=== PATIENT | female | born 1995 | race Caucasian/White ===

== ENCOUNTER 2018-05-14 13:04 | Emergency (ER) | payer MEDICAID ==
[~2018-05-14] VITALS: Ht 162.6 cm; Wt 172.3 kg
[2018-05-14 13:36] LABS: BASOPHILS # (AUTO) 0.03 x10^3/uL (0-0.1); BASOPHILS % (AUTO) 0 % (0-1); EOSINOPHILS # (AUTO) 0.11 x10^3/uL (0-0.4); EOSINOPHILS % (AUTO) 1 % (1-7); LYMPHOCYTES % (AUTO) 21 % (22-44); MD NO; MEAN CORPUSCULAR HEMOGLOBIN 27.8 pg (27.0-34.8); MEAN CORPUSCULAR HGB CONC 33.6 g/dL (32.4-35.8); MEAN CORPUSCULAR VOLUME 82.8 fL (80-100); MEAN PLATELET VOLUME 8.9 fL (7.4-10.4); MONOCYTES # (AUTO) 0.47 x10^3/uL (0.2-0.8); MONOCYTES % (AUTO) 5 % (2-9); NEUTROPHILS # (AUTO) 7.73 x10^3/uL (1.8-6.8); NEUTROPHILS % (AUTO) 73 % (42-75); PLATELET COUNT 298 x10^3/uL (130-400); RED CELL DISTRIBUTION WIDTH 13.5 % (9.6-15.2)
[2018-05-14 13:49] LABS: ALANINE AMINOTRANSFERASE 29 U/L (12-78); ALBUMIN 3.4 g/dL (3.4-5.0); ANION GAP 8 mmol/L (5-15); CHLORIDE 106 mmol/L (98-107); CREATININE 0.63 mg/dL (0.55-1.02)
[2018-05-14 13:53] LABS: ALKALINE PHOSPHATASE 108 U/L (45-117); BILIRUBIN,TOTAL 0.2 mg/dL (0.2-1.0); TOTAL PROTEIN 8.6 g/dL (6.4-8.2)
[2018-05-14] MEDS ORDERED: LISINOPRIL 10 MG TABLET PO ONE (15:30)
[2018-05-14] MEDS ORDERED: KETOROLAC 60 MG/2 ML IM ONE (15:30)
[2018-05-14] MEDS ORDERED: LISINOPRIL 10 MG TABLET ONE (15:33)
[2018-05-14] MEDS ORDERED: KETOROLAC 30 MG/1 ML ONE (15:33)
[2018-05-14 16:04] LABS: HCG UR SG 1.005 (1.003-1.030)
[2018-05-14 16:28] VITALS: BP 145/82
== END 2018-05-14 16:31 | disposition home or self-care (01) ==
LOC: ED 16:25
DX: R42 Dizziness and giddiness (principal); H61.20 Impacted cerumen, unspecified ear; I10 Essential (primary) hypertension
CPT/HCPCS: 36415; 80053; 81025; 84702; 85025; 93005; 96372; 99285; J1885

== ENCOUNTER 2018-05-19 08:41 | Emergency (ER) | payer MEDICAID ==
[~2018-05-19] VITALS: Ht 162.6 cm; Wt 168.0 kg
[2018-05-19 09:26] LABS: BASOPHILS # (AUTO) 0.04 x10^3/uL (0-0.1); BASOPHILS % (AUTO) 1 % (0-1); EOSINOPHILS # (AUTO) 0.14 x10^3/uL (0-0.4); EOSINOPHILS % (AUTO) 2 % (1-7); LYMPHOCYTES # (AUTO) 2.84 x10^3/uL (1-3.4); LYMPHOCYTES % (AUTO) 32 % (22-44); MD NO; MEAN CORPUSCULAR HEMOGLOBIN 27.5 pg (27.0-34.8); MEAN CORPUSCULAR HGB CONC 33.6 g/dL (32.4-35.8); MEAN CORPUSCULAR VOLUME 81.9 fL (80-100); MEAN PLATELET VOLUME 8.8 fL (7.4-10.4); MONOCYTES # (AUTO) 0.52 x10^3/uL (0.2-0.8); MONOCYTES % (AUTO) 6 % (2-9); NEUTROPHILS # (AUTO) 5.38 x10^3/uL (1.8-6.8); NEUTROPHILS % (AUTO) 60 % (42-75); PLATELET COUNT 324 x10^3/uL (130-400); RED BLOOD COUNT 5.15 x10^6/uL (3.82-5.3); RED CELL DISTRIBUTION WIDTH 13.6 % (9.6-15.2)
[2018-05-19 09:39] LABS: ALANINE AMINOTRANSFERASE 35 U/L (12-78); ALBUMIN 3.7 g/dL (3.4-5.0); ANION GAP 9 mmol/L (5-15); CALCIUM 8.8 mg/dL (8.5-10.1); CHLORIDE 101 mmol/L (98-107); CREATININE 0.69 mg/dL (0.55-1.02)
[2018-05-19 09:41] LABS: ALKALINE PHOSPHATASE 96 U/L (45-117); BILIRUBIN,TOTAL 0.4 mg/dL (0.2-1.0); TOTAL PROTEIN 8.5 g/dL (6.4-8.2)
[2018-05-19 10:19] LABS: HCG UR SG 1.015 (1.003-1.030); MICROSCOPIC AUTO
[2018-05-19 10:20] LABS: CULTURE INDICATED? YES
[2018-05-19 11:08] LABS: CLOSTRIDIUM DIFFICILE ANTIGEN NEGATIVE; CLOSTRIDIUM DIFFICILE TOXIN NEGATIVE (Negative)
[2018-05-19] MEDS ORDERED: ONDANSETRON ODT 4 MG ONE (11:10)
[2018-05-19] MEDS ORDERED: ONDANSETRON ODT 4 MG PO ONE (11:30)
[2018-05-19 11:58] VITALS: BP 115/58
== END 2018-05-19 11:59 | disposition home or self-care (01) ==
LOC: ED 10:48
DX: T46.4X1A Poisoning by angiotensin-converting-enzyme inhibitors, accidental (unintentional), initial encounter (principal); R05 Cough; K52.1 Toxic gastroenteritis and colitis; Y92.89 Other specified places as the place of occurrence of the external cause; N30.00 Acute cystitis without hematuria
CPT/HCPCS: 36415; 80053; 81001; 81025; 85025; 87086; 87324; 89055; 93005; 99285; Q0162

== ENCOUNTER 2018-05-25 17:12 | Emergency (ER) | payer MEDICAID ==
[~2018-05-25] VITALS: Ht 162.6 cm; Wt 172.3 kg
[2018-05-25 18:48] LABS: ANION GAP 11 mmol/L (5-15); CALCIUM 8.5 mg/dL (8.5-10.1); CHLORIDE 106 mmol/L (98-107); CREATININE 0.61 mg/dL (0.55-1.02)
[2018-05-25 19:40] VITALS: BP 142/87
== END 2018-05-25 19:42 | disposition home or self-care (01) ==
LOC: ED 19:20
DX: I10 Essential (primary) hypertension (principal)
CPT/HCPCS: 36415; 80048; 93005; 99285